=== PATIENT | female | born 1965 | race Caucasian/White ===

== ENCOUNTER → 2017-06-30 | Day surgery (SDC) | payer OTHER ==
[~2017-06-30] MED LIST: ACCUNEB SO1.25 MG/1 INH; ADVAIR HFA 230M12 GM INH; FIBER LAXATIVE500 MG PO; FLONASE 0.05%50 MCG NASAL; HYDROCODONE-AP1 EAC6 PO; NUVIGIL250 MG PO; OMEPRAZOLE40 MG PO; SINGULAIR 10 MG10 M1 PO; VIIBRYD40 MG PO; WELLBUTRIN XL300 MG PO
[2017-06-30 09:21] LABS: HEMATOCRIT 40.2 % (37.0-47.0); HEMOGLOBIN 13.6 gm/dL (12.0-15.0); MCH 33.1 pg (26.0-34.0); MCHC 33.9 g/dL (28.0-37.0); MCV 97.5 fL (80.0-100.0); MPV 7.2 fl. (7.2-11.1); RBC 4.12 mil/uL (4.20-5.00); RDW-CV 12.5 % (10.5-14.5); WBC 13.1 thou/uL (4.0-11.0)
[2017-06-30 09:22] LABS: CALCIUM 9.3 mg/dL (8.5-10.1); CREATININE 0.9 mg/dL (0.6-1.3)
--- NOTE | 2017-07-01 12:25 | OP ---
[address] [address] OPERATIVE REPORT Name: SHERRI HOLLINGSWORTH Room: [facility]#: [id number] Admission: 06/30/17 Attend Phys: Sorin Gomez Discharge: Date of : 69 Report #: [id number] THIS REPORT FOR: //name// CC: Sorin Hollingsworth DATE OF SERVICE: 06/30/2017 PREOPERATIVE DIAGNOSIS: Ventral incisional hernia. POSTOPERATIVE DIAGNOSIS: Ventral incisional hernia. OPERATION: Diagnostic laparoscopy with lysis of adhesions. SURGEON: Sorin Gomez MD ANESTHESIA: General. ESTIMATED BLOOD LOSS: Minimal. INTRAOPERATIVE FINDINGS: She had small-bowel plastered to her abdominal wall right at the level of the hernia. I did not feel I could safely dissect this away for hernia repair. I will refer her to another surgeon for a second opinion. DESCRIPTION OF PROCEDURE: After informed consent was obtained, the patient was brought to the operating room and placed supine. SCDs were placed and working, preoperative antibiotics were administered, general anesthesia was induced. The abdomen was prepped and draped in usual sterile fashion. A 5-mm incision was made in the right upper quadrant. A 5-mm trocar was placed under direct vision. Pneumoperitoneum established. A right-sided additional 5-mm port was placed as well. I inspected the left lower quadrant of the abdomen where the hernia was. She had small-bowel just plastered to this area. I do not see any dissection planes could peel the small-bowel off. There were some adhesions of the small-bowel to the anterior abdominal wall and these were taken down sharply with scissors, although I kept the dissection to a minimum. I did not think it was safe to proceed and therefore, I removed the ports. The skin was then closed with 4-0 Monocryl. Incisions were sealed with Dermabond. COMPLICATIONS: [place] [address] OPERATIVE REPORT Name: SHERRI HOLLINGSWORTH Room: [facility]#: [id number] Admission: 06/30/17 Attend Phys: Sorin Gomez Discharge: Date of : 69 Report #: [id number] DISPOSITION: The patient was taken to recovery in satisfactory condition. <ELECTRONICALLY SIGNED> By: Sorin Gomez MD 07/01/17 1225 1142 1216Sorin Gomez MD /nt
== END | disposition home or self-care (01) ==
LOC: M.SUR 06-26 11:27
PROVIDERS: Surgery
DX: K43.2 Incisional hernia without obstruction or gangrene (principal); Z79.899 Other long term (current) drug therapy; Z79.891 Long term (current) use of opiate analgesic; Z88.6 Allergy status to analgesic agent; Z88.8 Allergy status to other drugs, medicaments and biological substances

== ENCOUNTER → 2020-06-19 | Outpatient (CLI) | payer OTHER ==
[~2020-06-19] MED LIST changes: +ADVAIR 250-501 EACH INH; +NORCO5 PO; +RITALIN20 MG PO; +TOPROL XL25 MG PO
== END ==
LOC: M.LAB 08:22
PROVIDERS: ATTEND Surgery
DX: Z01.812 Encounter for preprocedural laboratory examination (principal); Z20.822 Contact with and (suspected) exposure to COVID-19; K80.20 Calculus of gallbladder without cholecystitis without obstruction

== ENCOUNTER → 2020-06-22 | Day surgery (SDC) | payer OTHER ==
[2020-06-22 07:46] LABS: CALCIUM 8.6 mg/dL (8.5-10.1); CREATININE 0.8 mg/dL (0.6-1.3); POTASSIUM 3.9 mmol/L (3.5-5.1)
[2020-06-22 07:51] LABS: ALBUMIN 3.7 g/dL (3.4-5.0); TOTAL BILIRUBIN 0.2 mg/dL (<0.1-1.0); TOTAL PROTEIN 7.6 g/dL (6.4-8.2)
--- NOTE | 2020-06-22 08:56 | OP ---
[facility] [address] [place] [address] OPERATIVE REPORT Name: SHERRI HOLLINGSWORTH Room: [facility]#: [id number] Admission: 06/22/20 Attend Phys: Sorin Gomez Discharge: Date of : 69 Report #: [id number] THIS REPORT FOR: cc: Nena Hollingsworth Tara DO ~ Patterson, Jonathan D. MD DATE OF SERVICE: 06/22/2020 PREOPERATIVE DIAGNOSIS: Chronic cholecystitis. POSTOPERATIVE DIAGNOSIS: Chronic cholecystitis. OPERATION: Laparoscopic cholecystectomy. SURGEON: Sorin Gomez MD. ANESTHESIA: General. ESTIMATED BLOOD LOSS: Minimal. SPECIMEN: Gallbladder. DESCRIPTION OF PROCEDURE: After informed consent was obtained, the patient was brought to the operating room and placed supine. SCDs were placed and working, preoperative antibiotics were administered, general anesthesia was induced. The abdomen was prepped and draped in the usual sterile fashion. A Veress needle was inserted in the left upper quadrant. Pneumoperitoneum was established. Right upper quadrant 5 mm trocar was placed. A supraumbilical 5 mm trocar was placed under direct vision. Then, a right-sided 11 mm port and an epigastric 5 mm port was placed. The patient was placed in the reverse Trendelenburg position. Gallbladder was grasped and retracted cephalad. Infundibulum was grasped and retracted laterally. I dissected out the cystic duct and cystic artery as well as the cystic plate. Cystic duct and artery were clipped and ligated leaving 2 clips on the remaining duct and 1 on the remaining artery. Gallbladder was then taken off the liver bed with electrocautery. It was placed into an Endopouch and removed. The fascia in the right-sided incision was closed with a [id number] 0 Vicryl. Skin was closed with 4-0 Monocryl. Incisions were sealed with Dermabond. COMPLICATIONS: [place] [address] OPERATIVE REPORT Name: SHERRI HOLLINGSWORTH Room: [facility]#: [id number] Admission: 06/22/20 Attend Phys: Sorin Gomez Discharge: Date of : 69 Report #: [id number] DISPOSITION: The patient was taken to recovery in satisfactory condition. <ELECTRONICALLY SIGNED> By: Sorin Gomez MD 06/22/20 0856 0840 0847Sorin Gomez MD /li
--- NOTE | 2020-06-22 09:43 | EKG ---
[place] [address] ELECTROCARDIOGRAM REPORT Name: SHERRI CHAMBERLAIN Room: [facility]#: [id number] Admission: 06/22/20 Attend Phys: Sorin Hernandez Discharge: Date of : 69 Date of Service: 06/22/20713 Report #: [id number] THIS REPORT FOR: //name// [facility] Test Date: 2020-06-22 Test Time: 07:14:14 Pat Name: SHERRI CHAMBERLAIN Department: Room: Gender: Rn Bariatric: : 1965 Requested By: Sorin Gomez Order Number: [id number] Iva MD: Hipolito Farrell Measurements Intervals [place] Rate: 67 P: 66 [place]: 168 QRS: 65 QRSD: 86 T: 46 QT: 402 QTc: 425 Interpretive Statements Sinus rhythm RSR' in V1 or V2, probably normal variant No previous ECG available for comparison Electronically Signed On 06-22-2020 9:42:52 PMO LEAD by Hipolito Farrell [email or web address] <ELECTRONICALLY SIGNED> By: Hipolito Farrell MD, [facility] 06/22/2042 3 3 Hipolito Farrell MD, [facility] /EPI
--- NOTE | 2020-06-27 18:06 | PATH ---
[address] [address] PATHOLOGY RPT PROCEDURE Name: SHERRI HOLLINGSWORTH Room: [facility].#: [id number] Admission: 06/22/20 Date of : 69 Discharge: Report #: [id number] Path Case #: [id number] [facility] Accession Number: [id number] . 01 Material submitted: . gallbladder - GALLBLADDER AND CONTENTS . 01 Clinical history: . CALCULUS OF GALLBLADDER . 02 Diagnosis: Gallbladder and contents: - Chronic cholecystitis and cholelithiasis. ([facility]/db; 06/27/2020) LBQ 06/27/2020 1641 Local . 02 Electronically signed: . Wili Acuña MD, Pathologist NPI- [id number] . 01 Gross description: . Received in formalin labeled "Sherri [place], gallbladder and contents" is an intact cholecystectomy specimen measuring 8.3 x 4.3 x 3.6 cm. The serosa is perez-green and smooth and the specimen is opened to reveal dark green velvety mucosa without polyps or masses. The average wall thickness is 0.1 cm. One soft black calculus measuring 0.2 cm in greatest dimension is identified within the gallbladder. [employer] [facility] sections of the fundus and body and the cystic duct margin are submitted in A1. ([facility]; 06/26/2020) [facility] 06/26/2020 [facility] Local . 02 Pathologist provided ICD-10: K80.10 . 02 CPT . 104062 Specimen Comment: A courtesy copy of this report has been sent to [phone] Specimen Comment: [phone] Specimen Comment: Report sent to / DR HOLLINGSWORTH Performed at: 01 [facility] [address], [place] [id number] MD Tiburcio Blanco MD Phone: [phone] Performed at: 02 [facility] [address], [place], [place] [id number] MD Wili Acuña MD Phone: [phone]
== END | disposition home or self-care (01) ==
LOC: M.SUR
PROVIDERS: ATTEND Surgery
DX: K81.1 Chronic cholecystitis (principal); R10.11 Right upper quadrant pain; J45.909 Unspecified asthma, uncomplicated; F32.9 Major depressive disorder, single episode, unspecified; F41.9 Anxiety disorder, unspecified; K21.9 Gastro-esophageal reflux disease without esophagitis; Z98.890 Other specified postprocedural states; Z79.899 Other long term (current) drug therapy; Z90.49 Acquired absence of other specified parts of digestive tract; Z90.710 Acquired absence of both cervix and uterus; Z88.8 Allergy status to other drugs, medicaments and biological substances